=== PATIENT | female | born 1965 | race Caucasian/White ===

== ENCOUNTER 2017-08-31 10:00 | Outpatient (RCR) | payer BC, SELFPAY | END 2017-08-31 23:59 | LOC: OT 10:00 | PROVIDERS: Visit Provider Orthopaedic Surgery Adult Reconstructive Orthopaedic Surgery | DX: M77.12 Lateral epicondylitis, left elbow (principal) | CPT/HCPCS: 97014; 97035; 97140; 97165; G0283 ==

== ENCOUNTER 2017-08-31 11:00 | Outpatient (RCR) | payer BC, SELFPAY | END 2017-08-31 23:59 | LOC: OT 11:00 | PROVIDERS: Visit Provider Orthopaedic Surgery Adult Reconstructive Orthopaedic Surgery | DX: S46.001A Unspecified injury of muscle(s) and tendon(s) of the rotator cuff of right shoulder, initial encounter (principal); M75.50 Bursitis of unspecified shoulder | CPT/HCPCS: 97014; 97110; 97140; 97165; G0283 ==

== ENCOUNTER 2017-09-30 10:00 | Outpatient (RCR) | payer BC, SELFPAY | END 2017-09-30 10:01 | disposition home or self-care (01) | LOC: OT 10:00 | PROVIDERS: Visit Provider Orthopaedic Surgery Adult Reconstructive Orthopaedic Surgery | DX: M77.12 Lateral epicondylitis, left elbow (principal) | CPT/HCPCS: 97035; 97110; 97140 ==

== ENCOUNTER 2017-11-30 08:00 | Outpatient (RCR) | payer BC, SELFPAY | END 2017-11-30 08:01 | disposition home or self-care (01) | LOC: OT 08:00 | PROVIDERS: Visit Provider Orthopaedic Surgery Adult Reconstructive Orthopaedic Surgery | DX: S46.001A Unspecified injury of muscle(s) and tendon(s) of the rotator cuff of right shoulder, initial encounter (principal); M75.51 Bursitis of right shoulder | CPT/HCPCS: 97014; 97110; 97140; 97164; G0283 ==

== ENCOUNTER 2018-08-31 09:00 | Outpatient (RCR) | payer BC, SELFPAY | END 2018-08-31 09:05 | disposition home or self-care (01) | LOC: OT 09:00 | PROVIDERS: Visit Provider Orthopaedic Surgery Adult Reconstructive Orthopaedic Surgery | DX: S56.512A Strain of other extensor muscle, fascia and tendon at forearm level, left arm, initial encounter (principal) | CPT/HCPCS: 97014; 97035; 97110; 97140; 97165; G0283 ==

== ENCOUNTER → 2018-09-27 13:52 | Outpatient (CLI) | payer BC, SELFPAY ==
--- NOTE | 2018-09-27 13:55 | MR_ITS ---
MR elbow RT wo con CLINICAL INDICATION: Elbow pain ITS.REASON: RIGHT ELBOW LATERAL EPICONDYLITIS ORDERING PHYSICIAN: Fitz Figueredo PATIENT AGE: 53 years Comparison: None TECHNIQUE: Multiplanar multiecho sequences are performed without contrast. FINDINGS: No fracture or dislocation is evident. No displaced fat pads. No bone bruises. The ulnar collateral ligament appears intact. There is increased T2 signal at the common extensor tendon at the lateral epicondyle consistent with lateral epicondylitis. There is also increased T2 signal involving the proximal aspect of the lateral collateral ligament suggesting a tear or sprain of the lateral collateral ligament. The common flexor tendon has an unremarkable appearance. Biceps tendon and brachioradialis tendons are unremarkable as well. IMPRESSION: 1. Findings compatible with lateral epicondylitis 2. Partial tear versus sprain of the lateral collateral ligament
== END ==
PROVIDERS: PCP Family Medicine; Visit Provider Orthopaedic Surgery Adult Reconstructive Orthopaedic Surgery
DX: M77.11 Lateral epicondylitis, right elbow (principal)
CPT/HCPCS: 73221

== ENCOUNTER 2020-02-15 10:00 | Outpatient (RCR) | payer BC, SELFPAY | END 2020-02-15 10:05 | disposition home or self-care (01) | LOC: OT 10:00 | PROVIDERS: PCP Family Medicine; Visit Provider Orthopaedic Surgery Adult Reconstructive Orthopaedic Surgery | DX: M77.11 Lateral epicondylitis, right elbow (principal) | CPT/HCPCS: 97014; 97035; 97110; 97140; 97164; 97166; G0283 ==

== ENCOUNTER → 2020-09-20 09:26 | Outpatient (CLI) | payer MEDICAID, SELFPAY ==
--- NOTE | 2020-09-20 09:34 | MR_ITS ---
PROCEDURE: MR WRIST LT WO CON CLINICAL INDICATION: LEFT WRIST PAIN X3 MONTHS, NO INJURY COMPARISON: No exams were available for comparison TECHNIQUE: Routine multiplanar multi echo sequences are performed without gadolinium enhancement. FINDINGS: Multiplanar multi echo sequences are performed without contrast. There is mild degree of motion artifact which does obscure fine detail. No obvious fracture. No significant degenerative change. There is a small amount fluid within the radial ulnar joint and distal to the ulnar styloid. The radial ulnar component of the triangular fibrocartilage appears intact. There is suspected tear the ulnar triquetrum component of the triangular fibrocartilage. This may be confirmed with MR arthrography. No other significant anomalies are evident. The scapholunate ligament appears intact. Suspect some subchondral cystic change within the dorsal aspect of the lunate. Motion artifact however obscures detail of this region. IMPRESSION: Possible tear of the ulnar triquetrum component of the triangular fibrocartilage. MR arthrogram may confirm. Motion artifact does obscure fine detail. Dictated by: Rm Elam MD 09/30/2020 10:10 Rm Elam MD in [place] 09/30/2020 10:10
== END ==
PROVIDERS: PCP Family Medicine; Visit Provider Orthopaedic Surgery Adult Reconstructive Orthopaedic Surgery
DX: M25.532 Pain in left wrist (principal)
CPT/HCPCS: 73221